=== PATIENT | female | born 1975 | race Caucasian/White ===

== ENCOUNTER 2017-02-26 13:54 | Emergency (ER) | payer MEDICAID ==
[2017-02-26 13:58] VITALS: RESP 18; O2SAT 100
--- NOTE | 2017-02-26 14:41 | EDPHY ---
H & P Stated Complaint: C/O L arm swelling x 2 days;denies injury HPI/ROS: CHIEF COMPLAINT: Left arm swelling HISTORY OF PRESENT ILLNESS: This patient is a 41 year old female arriving with friends complaining of swelling in her left arm onset Tuesday morning, three days ago. The swelling began in her wrist, and gradually spread towards her elbow. This morning, she developed tenderness in the area as well, and states it is mildly painful to straighten her arm. She denies any trauma, insect bites, or other known irritation. She has not taken any medications for pain relief, but did take Benadryl with no relief of symptoms. She endorses occasional aches in her neck and knee--no recent change. She also occasionally experiences chest pain which she states is not any different from usual anxiety-type pain she experiences. She did have a recent urinary tract infection, and is one week into a course of Bactrim. She feels her infection symptoms have generally resolved. She denies fever, swollen glands, or other associated symptoms. No known family history of blood clots. REVIEW OF SYSTEMS: A ten point review of systems was performed and is negative with the exception of the items mentioned in the HPI. - Personal History LMP (Females 10-55): 15-21 Days Ago Current Tetanus Diphtheria and Acellular Pertussis (TDAP): Unsure - Medical/Surgical History PMH: Anxiety (Effexor XR) Other PMH: anxiety - Social History Smoking Status: Never smoked Additional Social History: Friends at bedside. Visiting from [place]. Single. She has three children. Nonsmoker. - Physical Exam Exam: General Appearance: Alert. Vital signs reviewed. Blood pressure 142/83 Eyes: Pupils equal and round, no conjunctival injection, no discharge. Anicteric. ENT, Mouth: Mucous membranes are moist, no oropharyngeal erythema or edema. Neck: Nontender over cervical spine in the midline. Lymph nodes: No cervical, supraclavicular, or axillary lymphadenopathy Respiratory: Lungs are clear to auscultation; no wheezes, rales, or rhonchi. Cardiovascular: Regular rate and rhythm; no murmur, rub, or gallop. Gastrointestinal: Abdomen is soft and nontender, no masses or organomegaly, bowel sounds normal. Skin: Warm and dry, no rashes on exposed skin, normal color. Joints: No joint redness or swelling or tenderness. Back: Nontender to palpation over the thoracolumbar spine. No CVAT. Extremities: Left arm: Mild posterolateral swelling at wrist--seems to be involving the muscle, not the joint. Medial elbow tenderness to palpation--no appreciable swelling or redness.. No warmth, no redness, no streaking, no palpable mass with exam of LUE. No lower extremity edema, no calf tenderness or swelling. FAROM left elbow and wrist. Neurological: Alert and oriented. Moving all four extremities easily and equally. Strength 5/5 BUEs. Sensation intact to light touch BUEs. Psychiatric: Anxious affect. Constitutional: Initial Vital Signs Temperature (C) 37 C 02/26/17 13:55 Heart Rate 90 02/26/17 13:55 Respiratory Rate 18 02/26/17 13:55 Blood Pressure 142/83 H 02/26/17 13:55 O2 Sat (%) 100 02/26/17 13:55 O2 Delivery Mode Room Air Allergies/Adverse Reactions: No Known Allergies Allergy (Unverified 02/26/17 13:58) Home Medications: Medication Instructions Recorded Sulfamethox/Tmp 800/160 mg 1 tab PO 02/26/17 [Bactrim Ds] Venlafaxine Xr [Effexor Xr 75MG 75 mg PO 02/26/17 (*)] Medical Decision Making - Diagnostics Imaging: Discussed imaging studies w/ call center team leader Radiologist ED Course/Re-evaluation: Plan for US. Possibly x-ray. 16:[address] Chavez, radiologist. US of left upper extremity is negative for DVT. Discussed xray of LUE, patient declines. The etiology of her discomfort is unclear. The swelling that she reports is quite mild. There is no sign of abscess of cellulitis. No h/o or signs of IVDA. No abscess appreciated. Her joints are not inflamed--doubt crystal deposition disease, rheumatologic process. There has been no trauma. I recommend symptomatic treatment and watchful waiting. Departure - Departure Disposition: Home, Routine, Self-Care Clinical Impression: Left arm swelling Condition: Good Instructions: Edema (ED) Additional Instructions: 1. You may take Tylenol or ibuprofen as directed below for pain and swelling relief. Wear your sling for comfort as directed. 2. Follow up with a primary care provider for continued management of symptoms. We have referred you to our primary care physician artist color separation, but you may also follow up with your regular primary care provider. 3. Return to the emergency department for redness, increased swelling, warmth, or pain in the swollen areas, or if you develop fever, vomiting, or other worsening of condition or new concerns. Adult Pain & Fever Control: We recommend Acetaminophen (Tylenol) and Ibuprofen (Motrin,Advil) for pain and fever control. When fever is high or pain severe, both drugs can be used at the same time, but at different intervals. Please note the time differences. Your dose is: Acetaminophen 650mg every 4 to 6 hours Ibuprofen 400mg every 6-8 hours with food OR Note: do not take Acetaminophen with Hydrocodone (Vicodin, Lortab) or Oxycodone (Percocet). These medications also contain Acetaminophen. No more than 3000mg of Acetaminophen should be taken in 24 hours (for an adult). Referrals: LICHA BELCHER [Other] - As per Instructions Komal Alegre MD [[facility] [place]] - As per Instructions Report Scribed for: Zena Small Report Scribed by: Symone Lopes Date of Report: 02/26/17 Time of Report: 16:19 Physician Review and Approval Statement: 02/26/17 14:41 Portions of this note were transcribed by the certified medical dosimetrist. I, Dr. Zena Small, personally performed the history, physical exam, and medical decision- making; and confirmed the accuracy of the information in the transcribed note.
[2017-02-26 16:49] VITALS: BP 138/76; PULSE 80
[2017-02-26 16:52] VITALS: TEMP 98.2
== END 2017-02-26 16:52 | disposition home or self-care (01) ==
DX: M79.89 Other specified soft tissue disorders (principal)